=== PATIENT | male | born 1960 ===

== ENCOUNTER → 2018-12-22 | Emergency (ER) | payer OTHER ==
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
--- NOTE | 2018-12-22 13:05 | NUR ---
Initial contact; [employer] called to Emergency Services for [facility] [employer]. [employer] arrived where CPR was being administered to patient. Patient did not respond. [employer] offered prayer following Physician's decision to stop efforts to revive patient.
--- NOTE | 2018-12-22 16:27 | NUR ---
SW met with patient's son, Wolfgang and his . Doctor was present as well to answer their questions. supervisor [employer] and auxiliaries is working with [facility] to see if patient would be a candidate for donation. This is unknown at this time. Patient's son chose [facility] in [place] and [facility] will contact patient's family after [facility] makes their decision. SW then took Wolfgang and his to see patient and provided support during that time. Wolfgang and his left after this and will await a phone call from the [facility] [employer].
== END ==
LOC: COL.ER 10:57 → EDBD 11:07 → COL.ER 11:07
DX: I46.9 Cardiac arrest, cause unspecified (principal)
CPT/HCPCS: J0171; J2001; J3475